=== PATIENT | female | born 1980 | race Caucasian/White ===

== ENCOUNTER 2018-03-18 00:42 | Emergency (ER) | payer MEDICAID ==
[~2018-03-18] VITALS: Ht 149.9 cm; Wt 54.7 kg
[~2018-03-18 00:42] MED LIST: IBUP-1544 PO; PREN1TAB79 PO
[2018-03-18 01:08] VITALS: BP 135/82; PULSE 75; RESP 18; Ht 149.9 cm; Wt 54.7 kg
--- NOTE | 2018-03-18 01:39 | ERD ---
ER Documentation Chief Complaint Chief Complaint flu-liked symptoms (HAs,sore throat,runny nose,cough) x 3weeks HPI 37-year-old female presents with complaint of cough, sore throat, and headache for 3 weeks. Patient denies fevers. Denies drooling, denies trismus. Denies past medical history. Denies allergies. Denies medications. Denies surgeries. Denies alcohol, tobacco, drug use. Up to date on vaccines. ROS All systems reviewed and are negative except as per history of present illness. Medications Home Meds Active Scripts Ibuprofen* (Motrin*) 600 Mg Tab, 600 MG PO Q6H PRN for PAIN AND OR ELEVATED TEMP, #30 TAB 0 Refills Prov:VIN MCINTOSH 03/18/18 Azithromycin* (Zithromax*) 250 Mg Tablet, 250 MG PO .ZPACK DIRECTED for cough, #6 TAB 0 Refills TAKE 500 MG (2 TABS) THE FIRST DAY THEN 250 MG (1 TAB) DAYS 2-5 Prov:VIN MCINTOSH 03/18/18 Promethazine HCl/Codeine (Prometh-Codein 6.25-10 mg/5 ml) 5 Ml Syrup, 5 ML PO Q4 for cough, #4 OZ 0 Refills Prov:VIN MCINTOSH 03/18/18 Ibuprofen* (Ibuprofen*) 800 Mg Tab, 800 MG PO Q6, #20 TAB 0 Refills Prov:YARA WILSON MD 06/23/15 Reported Medications Vit W-Ca,Fe,FA(<1 mg) ( Vitamins) 1 Each Tablet, 1 EACH PO DAILY, TAB 06/21/15 Allergies Allergies: Coded Allergies: No Known Allergies (Unverified Allergy, Unknown, 06/21/15) FmHx Family History: No diabetes, No coronary disease, No other Physical Exam Vitals Vital Signs Date Temp Pulse Resp B/P (MAP) Pulse Ox O2 O2 Flow FiO2 Time Delivery Rate 03/18/18 98.4 75 18 135/82 99 01:08 (99) Physical Exam General: Well developed, well nourished. No acute distress. Mouth: Mucus membranes moist. No drooling, ulcers, bleeding, or lesions, noted. Neck: No lymphadenopathy noted. Tracheal midline, no goiter or nodules noted. No JVD. Heart: RR w/o murmur, rubs, or gallops. Lungs: Clear to auscultation bilaterally w/o wheezes, crackles, rhonchi. Symmetric rise and fall. Equal breath sounds. . Psych: Normal mood and affect. Procedures/MDM MDM: 37-year-old female presents with complaint of cough, sore throat, and headache for 3 weeks. Patient denies fevers. Denies drooling, denies trismus. I have low suspicion for tuberculosis, intracranial bleed, epiglottitis, peritonsillar abscess, retropharyngeal abscess, or strep throat. Although lungs sound clear on exam, due to the 3-week length of the illness decision was made to prescribe antibiotics in case of bacterial etiology. Patient also given prescription cough medicine and ibuprofen. Patient discharged with strict ER precautions. Patient advised to follow up with PMD. All questions answered at discharge. Departure Diagnosis: Primary Impression: Upper respiratory infection URI type: unspecified URI Qualified Codes: J06.9 - Acute upper respiratory infection, unspecified Condition: Stable VIN MCINTOSH Mar 18, 2018 01:39
[2018-03-18] MEDS ORDERED: PROM5SYR2 PO (01:41)
[2018-03-18] MEDS ORDERED: IBUP-1542 PO (01:42)
[2018-03-18] MEDS ORDERED: AZIT250T PO (01:42)
== END 2018-03-18 02:00 | disposition home or self-care (01) ==
LOC: FTE 00:42
DX: J06.9 Acute upper respiratory infection, unspecified (principal)
CPT/HCPCS: 99283